=== PATIENT | male | born 1990 | race Caucasian/White ===

== ENCOUNTER 2016-07-22 02:44 | Emergency (ER) | payer OTHER ==
[~2016-07-22] VITALS: Ht 182.9 cm; Wt 84.1 kg
[2016-07-22] MEDS ORDERED: NORCO 5/3251 TABLET PO (03:05)
[2016-07-22] MEDS ORDERED: AMOXICILLIN875 MG PO (03:05)
[2016-07-22] MEDS ORDERED: MOTRIN600 MG PO (03:05)
[2016-07-22 03:31] VITALS: BP 164/94
== END 2016-07-22 03:31 | disposition home or self-care (01) ==
LOC: EME 02:44
PROC: 3E0T3BZ Introduction of Anesthetic Agent into Peripheral Nerves and Plexi, Percutaneous Approach (ICD-10-PCS; principal; 2016-07-22)
DX: K04.7 Periapical abscess without sinus (principal); K02.9 Dental caries, unspecified; F17.200 Nicotine dependence, unspecified, uncomplicated
CPT/HCPCS: 99281; 99283; S0020

== ENCOUNTER 2016-09-11 10:27 | Emergency (ER) | payer OTHER ==
[~2016-09-11] VITALS: Ht 182.9 cm; Wt 93.6 kg
[~2016-09-11 10:27] MED LIST: AMOXICILLIN875 MG PO; MOTRIN600 MG PO; NORCO 5/3251 TABLET PO
[2016-09-11] MEDS ORDERED: PEN-VEE K,VEET500 MG PO (13:52)
[2016-09-11 14:00] VITALS: BP 134/83
== END 2016-09-11 14:01 | disposition home or self-care (01) ==
LOC: EME 10:27
DX: K04.7 Periapical abscess without sinus (principal); K02.9 Dental caries, unspecified
CPT/HCPCS: 99281; 99283